=== PATIENT | male | born 1970 | race Caucasian/White ===

== ENCOUNTER 2016-10-30 12:31 | Inpatient (IN) | payer OTHER ==
[~2016-10-30] VITALS: Ht 165.1 cm; Wt 90.0 kg
[~2016-10-30 12:31] MED LIST: HYDR-3498 PO; IBUP-1542 PO
[2016-10-30] MEDS ORDERED: CEFTRIAXONE 1 GM/50 ML (PMX) 50 ML IVPB STA (13:35)
[2016-10-30] MEDS ORDERED: SODIUM CHLORIDE 0.9% 1L BAG IV* STA (13:35)
[2016-10-30] MEDS ORDERED: AZITHROMYCIN 500MG/NS (PMX) 250 ML IV STA (13:35)
[2016-10-30 13:54] LABS: ADD SCAN DIFF NO
[2016-10-30 13:55] LABS: BASOPHILS % 0.3 % (0.0-2.0); EOSINOPHILS % 0.3 % (0.0-7.0); HEMATOCRIT 40.9 % (42.0-52.0); HEMOGLOBIN 14.3 g/dl (14.0-18.0); LYMPHOCYTES # 1.7 10^3/ul (0.8-2.9); LYMPHOCYTES % 23.4 % (15.0-51.0); MEAN CORPUSCULAR HEMOGLOBIN 30.8 pg (29.0-33.0); MEAN CORPUSCULAR VOLUME 88.1 fl (82.0-101.0); MEAN PLATELET VOLUME 9.6 fl (7.4-10.4); MONOCYTE # 0.7 10^3/ul (0.3-0.9); MONOCYTES % 9.2 % (0.0-11.0); NEUTROPHIL # 4.8 10^3/ul (1.6-7.5); NEUTROPHILS % 66.2 % (39.0-77.0); PLATELET COUNT 231 10^3/UL (140-415); RED BLOOD COUNT 4.64 10^6/ul (4.70-6.10); RED CELL DISTRIBUTION WIDTH 12.5 % (11.5-14.5); WHITE BLOOD COUNT 7.3 10^3/ul (4.8-10.8)
[2016-10-30 14:07] LABS: ADD UMIC NO; UR ASCORBIC ACID 20 mg/dL (NEGATIVE); UR BILIRUBIN (Dip) NEGATIVE (NEGATIVE); UR BLOOD (Dip) NEGATIVE (NEGATIVE); UR CLARITY CLEAR (CLEAR); UR COLOR YELLOW (YELLOW); UR GLUCOSE (Dip) NEGATIVE (NEGATIVE); UR KETONES (Dip) NEGATIVE (NEGATIVE); UR LEUKOCYTE ESTERASE (Dip) NEGATIVE Leu/ul (NEGATIVE); UR NITRITE (Dip) NEGATIVE (NEGATIVE); UR TOTAL PROTEIN (Dip) NEGATIVE (NEGATIVE); UR UROBILINOGEN (Dip) 2+ mg/dL (NEGATIVE)
[2016-10-30 14:17] LABS: ALANINE AMINOTRANSFERASE 81 IU/L (13-69); ALBUMIN 4.8 g/dl (3.3-4.9); ALBUMIN/GLOBULIN RATIO 1.33; ALKALINE PHOSPHATASE 152 IU/L (42-121); ANION GAP 14 (8-16); ASPARTATE AMINO TRANSFERASE 64 IU/L (15-46); BILIRUBIN,INDIRECT 0.7 mg/dl (0-1.1); BILIRUBIN,TOTAL 0.7 mg/dl (0.2-1.3); BLOOD UREA NITROGEN 7 mg/dl (7-20); CALCIUM 9.2 mg/dl (8.4-10.2); CARBON DIOXIDE 28 mmol/L (21-31); CHLORIDE 103 mmol/L (97-110); CREATININE 0.65 mg/dl (0.61-1.24); GLUCOSE 101 mg/dl (70-220); POTASSIUM 3.6 mmol/L (3.5-5.1); SODIUM 141 mmol/L (135-144); TOTAL PROTEIN 8.4 g/dl (6.1-8.1)
[2016-10-30 14:29] LABS: TROPONIN-I < 0.012 ng/ml (0.00-0.12)
--- NOTE | 2016-10-30 14:42 | RADRPT ---
PROCEDURE: XR Chest AP portable CLINICAL INDICATION: Short of breath TECHNIQUE: An AP portable radiograph of the chest was submitted. COMPARISON: None. FINDINGS: Support Hardware: None Cardiovascular: The cardiovascular silhouette appears unremarkable. Lung Bridges: The lung bridges appear clear with no nodule, alveolar infiltrate, or interstitial promi nence evident. Pleural Spaces: No pneumothorax or pleural effusion is identified. Osseous Structures: The osseous structures appear intact. Soft Tissues: The soft tissues appear generous. IMPRESSION: Unremarkable portable chest. Physician Tasha Date Time Electronically viewed and signed by True Smith Physician on 10/30/2016 14:42 RH/
[2016-10-30 15:10] LABS: INR 0.95; PROTIME 12.7 Sec (12.2-14.2)
[2016-10-30 15:12] LABS: PARTIAL THROMBOPLASTIN TIME 35.9 Sec (25.0-35.0)
[2016-10-30] MEDS ORDERED: PEN500 PO (15:29)
[2016-10-30] MEDS ORDERED: ACETAMINOPHEN 325 MG TAB PO PRN (16:00)
[2016-10-30] MEDS ORDERED: ONDANSETRON 4 MG INJ IV PRN ×2 (16:00→20:00)
--- NOTE | 2016-10-30 16:21 | ERA ---
ER Documentation Chief Complaint Date/Time DATE: 10/30/16 TIME: 16:19 Chief Complaint cough/congestion x 1 week; dx with pna cont to have sob HPI Patient is a 46-year-old male with no medical problems who presents with fever and cough. He has palpitations and high blood pressure as well. His symptoms started on Tuesday and his primary doctor diagnosed him with a pneumonia and he was started on antibiotics and Ventolin. He has been taking antibiotics for the past 2 days but not getting better and actually feels worse. Upon review of old medical records the patient one previous visit to the ER in 2014. ROS All systems reviewed and are negative except as per history of present illness. Medications Home Meds Reported Medications Penicillin V Potassium* (Penicillin V K*) 500 Mg Tab, 500 MG PO Q8 for 7 Days, TAB PER PT STARTED RX ON 10-29-16 10/30/16 Discontinued Scripts Hydrocodone Bit-Acetaminophen* ([place]*) 5-325 Mg Tab, 1 TAB PO Q6 Y for PAIN, # 20 TAB Prov:ALBINO VELÁSQUEZ PA-C 03/31/15 Ibuprofen* (Motrin*) 600 Mg Tab, 600 MG PO Q6, #20 TAB Prov:ALBINO VELÁSQUEZ PA-C 03/31/15 Allergies Allergies: Coded Allergies: No Known Allergy (Unverified , 10/30/16) PMhx/Soc Medical and Surgical Hx: pt denies Medical Hx History of Surgery: No Anesthesia Reaction: No Hx Neurological Disorder: No Hx Respiratory Disorders: No Hx Cardiac Disorders: No Hx Psychiatric Problems: No Hx Miscellaneous Medical Probl: No Hx Alcohol Use: No Hx Substance Use: No Hx Tobacco Use: No Smoking Status: Never smoker FmHx Family History: No diabetes Physical Exam Vitals Vital Signs Date Time Temp Pulse Resp B/P Pulse Ox O2 Delivery O2 Flow Rate FiO2 10/30/16 12:37 99.9 110 22 146/86 92 Physical Exam Const: Mild distress secondary to shortness of breath Head: Atraumatic Eyes: Normal Conjunctiva ENT: Normal External Ears, Nose and Mouth. Neck: Full range of motion..~ No meningismus. Resp: Decreased breath sounds bilaterally Cardio: Tachycardic rate without murmur Abd: Soft, non tender, non distended. Normal bowel sounds Skin: No petechiae or rashes Back: No midline or flank tenderness Ext: No cyanosis, or edema Neur: Awake and alert Psych: Normal Mood and Affect Result Diagram: 10/30/16 1343 10/30/16 1343 Results 24 hrs Laboratory Tests Test 10/30/16 13:43 10/30/16 13:45 White Blood Count 7.310^3/ul Red Blood Count 4.6410^6/ul Hemoglobin 14.3g/dl Hematocrit 40.9% Mean Corpuscular Volume 88.1fl Mean Corpuscular Hemoglobin 30.8pg Mean Corpuscular Hemoglobin Concent 35.0g/dl Red Cell Distribution Width 12.5% Platelet Count 34163^3/UL Mean Platelet Volume 9.6fl Neutrophils % 66.2% Lymphocytes % 23.4% Monocytes % 9.2% Eosinophils % 0.3% Basophils % 0.3% Nucleated Red Blood Cells % 0.0/100WBC Neutrophils # 4.810^3/ul Lymphocytes # 1.710^3/ul Monocytes # 0.710^3/ul Eosinophils # 0.010^3/ul Basophils # 0.010^3/ul Nucleated Red Blood Cells # 0.010^3/ul Prothrombin Time 12.7Sec Prothrombin Time Ratio 1.0 INR International Normalized Ratio 0.95 Activated Partial Thromboplast Time 35.9Sec Sodium Level 141mmol/L Potassium Level 3.6mmol/L Chloride Level 103mmol/L Carbon Dioxide Level 28mmol/L Anion Gap 14 Blood Urea Nitrogen 7mg/dl Creatinine 0.65mg/dl Glucose Level 101mg/dl Calcium Level 9.2mg/dl Total Bilirubin 0.7mg/dl Direct Bilirubin 0.00mg/dl Indirect Bilirubin 0.7mg/dl Aspartate Amino Transf (AST/SGOT) 64IU/L Alanine Aminotransferase (ALT/SGPT) 81IU/L Alkaline Phosphatase 152IU/L Troponin I < 0.012ng/ml Total Protein 8.4g/dl Albumin 4.8g/dl Globulin 3.60g/dl Albumin/Globulin Ratio 1.33 Urine Color YELLOW Urine Clarity CLEAR Urine pH 7.0 Urine Specific Bath 1.010 Urine Ketones NEGATIVEmg/dL Urine Nitrite NEGATIVEmg/dL Urine Bilirubin NEGATIVEmg/dL Urine Urobilinogen 2+mg/dL Urine Leukocyte Esterase NEGATIVELeu/ul Urine Hemoglobin NEGATIVEmg/dL Urine Glucose NEGATIVEmg/dL Urine Total Protein NEGATIVEmg/dl Lactic Acid Level 1.3mmol/L Current Medications Medications (Trade) Dose Ordered Sig/Mahendra Route PRN Reason Start Time Stop Time Status Last Admin Dose Admin Sodium Chloride 2760 ml 2,760 ml BOLUS OVER 2 HOURS STAT IV* 10/30/16 13:35 10/30/16 13:37 DC 10/30/16 13:50 Ceftriaxone Sodium 50 ml @ 100 mls/hr ONCE STAT IVPB 10/30/16 13:35 10/30/16 14:04 DC 10/30/16 13:50 Azithromycin (Zithromax 500mg/ NS (Pmx)) 250 ml @ 250 mls/hr ONCE STAT IV 10/30/16 13:35 10/30/16 14:34 DC 10/30/16 15:26 Ondansetron HCl (Zofran Inj) 4 mg BRIDGE ORDER PRN IV NAUSEA AND/OR VOMITING 10/30/16 16:00 10/31/16 15:59 Acetaminophen (Tylenol Tab) 650 mg ER BRIDGE PRN PO MILD PAIN/FEVER 10/30/16 16:00 10/31/16 15:59 Procedures/MDM Chest x-ray shows no obvious focal pneumonia per radiology. Patient is a 46-year-old male presents with fever and cough. I believe he is failed outpatient treatment for pneumonia. He does not have an obvious focal pneumonia on chest x-ray but his symptoms are consistent with pneumonia. The patient will be given ceftriaxone and Zithromax IV for a community associated pneumonia. The patient will be admitted to Dr. Kendra Gupta as he has [facility] insurance. He will be admitted to a medical surgical bed. I doubt pneumothorax or pulmonary embolism at this time. Departure Diagnosis: Primary Impression: Pneumonia Qualified Code: J18.9 - Pneumonia due to infectious organism, unspecified laterality, unspecified part of lung Additional Impression: Cough Condition: NADIRA Stanley MD Oct 30, 2016 16:21
[2016-10-30 19:55] VITALS: BP 143/91; PULSE 102; RESP 18
[2016-10-30] MEDS ORDERED: morphine 2 MG INJ IV PRN (20:00)
[2016-10-30] MEDS ORDERED: ALBUTEROL 18 GM INHALER INH PRN (20:00)
[2016-10-30] MEDS: ACETAMINOPHEN 325 MG TAB PO PRN (20:41)
[2016-10-30] MEDS: SOD CHLORIDE 0.9% 1,000 ML IV SCH (20:42)
[2016-10-30] MEDS: ENOXAPARIN 30 MG/0.3 ML SYG SC SCH (20:47)
[2016-10-30 22:30] VITALS: BP 146/95; PULSE 94; RESP 18
[2016-10-31] MEDS ORDERED: AZIT250T6 PO (01:31)
[2016-10-31] MEDS ORDERED: ACET325T40 PO (01:33)
[2016-10-31] MEDS ORDERED: ALBU18HF INHALATION (01:33)
[2016-10-31 05:09] VITALS: BP 152/93; PULSE 86; RESP 20
[2016-10-31 05:13] VITALS: Ht 165.1 cm; Wt 90.0 kg
[2016-10-31 05:38] LABS: ADD SCAN DIFF NO
[2016-10-31 05:53] LABS: BASOPHILS % 0.3 % (0.0-2.0); EOSINOPHILS # 0.1 10^3/ul (0.0-0.5); EOSINOPHILS % 2.1 % (0.0-7.0); HEMATOCRIT 39.9 % (42.0-52.0); HEMOGLOBIN 13.6 g/dl (14.0-18.0); LYMPHOCYTES # 1.6 10^3/ul (0.8-2.9); LYMPHOCYTES % 25.8 % (15.0-51.0); MEAN CORPUSCULAR HEMOGLOBIN 30.6 pg (29.0-33.0); MEAN CORPUSCULAR HGB CONC 34.1 g/dl (32.0-37.0); MEAN CORPUSCULAR VOLUME 89.7 fl (82.0-101.0); MEAN PLATELET VOLUME 9.7 fl (7.4-10.4); MONOCYTE # 0.6 10^3/ul (0.3-0.9); MONOCYTES % 9.9 % (0.0-11.0); NEUTROPHIL # 3.7 10^3/ul (1.6-7.5); NEUTROPHILS % 61.4 % (39.0-77.0); PLATELET COUNT 231 10^3/UL (140-415); RED BLOOD COUNT 4.45 10^6/ul (4.70-6.10); RED CELL DISTRIBUTION WIDTH 12.5 % (11.5-14.5); WHITE BLOOD COUNT 6.1 10^3/ul (4.8-10.8)
[2016-10-31 06:42] LABS: CALCIUM 8.5 mg/dl (8.4-10.2); CREATININE 0.62 mg/dl (0.61-1.24); POTASSIUM 3.7 mmol/L (3.5-5.1)
[2016-10-31 07:42] VITALS: BP 152/96; RESP 18
[2016-10-31] MEDS: ENOXAPARIN 30 MG/0.3 ML SYG SC SCH ×2 (09:48→20:56)
[2016-10-31] MEDS: SOD CHLORIDE 0.9% 1,000 ML IV SCH ×3 (09:53→23:27)
--- NOTE | 2016-10-31 11:30 | HP ---
Date/Time of Note Date/Time of Note DATE: 10/31/16 TIME: 11:28 Assessment/Plan VTE Prophylaxis VTE Prophylaxis Intervention: other Lines/Catheters IV Catheter Type (from Nrs): Peripheral IV Assessment/Plan Chief Complaint/Hosp Course 1) pneumonia - intravenous antibiotics - intravenous fluids - monitor clinically Problems: HPI/ROS Admit Date/Time Admit Date/Time Oct 30, 2016 at 15:38 Hx of Present Illness Patient without any significant medical problems comes in with fever x 1 week and increasing shortness of breath and pleuritic chest pain for the last 3 days. Patient was given oral antibiotics without improvement. ROS Constitutional: febrile Eyes: no complaints ENT: no complaints Respiratory: pleuritic pain Cardiovascular: chest pain Gastrointestinal: no complaints Genitourinary: no complaints Musculoskeletal: no complaints Skin: no complaints Neurologic: no complaints Endocrine: no complaints Lymphatic: no complaints Psychological: no complaints PMH/Family/Social Social History Alcohol Use: none Smoking Status: Never smoker Exam/Review of Systems Vital Signs Vitals Vital Signs Date Time Temp Pulse Resp B/P Pulse Ox O2 Delivery O2 Flow Rate FiO2 10/31/16 07:42 99.1 86 18 152/96 95 10/31/16 05:09 Nasal Cannula 2.0 Intake and Output 10/30/16 10/30/16 10/31/16 15:00 23:00 07:00 Intake Total 850 ml Output Total 550 ml Balance 300 ml Exam Constitutional: well developed Head: atraumatic, normocephalic Neck: supple Respiratory: diminished breath sounds Cardiovascular: regular rate and rhythm Gastrointestinal: non-tender, soft Extremities: normal pulses Labs Result Diagram: 10/31/16 0506 10/31/16 0505 Medications Medications Current Medications Ceftriaxone Sodium 50 ml @ 100 mls/hr Q24H IVPB ; Start 10/31/16 at 14:00 Sodium Chloride (NS) 1,000 ml @ 75 mls/hr [id number] IV Last administered on 10/31t 09:53; Admin Dose 75 MLS/HR; Start 10/30/16 at 20:00 Ondansetron HCl (Zofran Inj) 4 mg Q6H PRN IV NAUSEA AND/OR VOMITING; Start at 20:00 Morphine Sulfate (morphine) 2 mg Q4H PRN IV pain ; Start 6/24/17 at 20:00 Enoxaparin Sodium (Lovenox) 30 mg BID SC Last administered on 10/31/16 09:48; Admin Dose 30 MG; Start 10/30/16 at 21:00 Acetaminophen (Tylenol Tab) 650 mg Q6H PRN PO PAIN AND OR ELEVATED TEMP Last administered on 10/30/16 20:41; Admin Dose 650 MG; Start 10/30/16 at 20:30 ISABELLA [facility] Oct 31, 2016 11:30
[2016-10-31] MEDS: ALBUTEROL 0.083% (NEB) 2.5 MG/3 ML AMP HHN SCH ×2 (14:00→19:18)
[2016-10-31] MEDS: CEFTRIAXONE 1 GM/50 ML (PMX) 50 ML IVPB SCH (14:15)
[2016-10-31 20:00] VITALS: BP 138/95; RESP 20
[2016-11-01] MEDS: ALBUTEROL 0.083% (NEB) 2.5 MG/3 ML AMP HHN SCH ×4 (01:54→22:31)
[2016-11-01 06:28] LABS: ADD SCAN DIFF NO
[2016-11-01 06:36] LABS: BASOPHILS % 0.4 % (0.0-2.0); EOSINOPHILS # 0.1 10^3/ul (0.0-0.5); EOSINOPHILS % 1.9 % (0.0-7.0); HEMATOCRIT 39.6 % (42.0-52.0); HEMOGLOBIN 13.7 g/dl (14.0-18.0); LYMPHOCYTES # 1.8 10^3/ul (0.8-2.9); LYMPHOCYTES % 35.3 % (15.0-51.0); MEAN CORPUSCULAR HEMOGLOBIN 30.4 pg (29.0-33.0); MEAN CORPUSCULAR HGB CONC 34.6 g/dl (32.0-37.0); MEAN PLATELET VOLUME 9.6 fl (7.4-10.4); MONOCYTE # 0.4 10^3/ul (0.3-0.9); MONOCYTES % 7.5 % (0.0-11.0); NEUTROPHIL # 2.8 10^3/ul (1.6-7.5); NEUTROPHILS % 53.9 % (39.0-77.0); PLATELET COUNT 277 10^3/UL (140-415); RED CELL DISTRIBUTION WIDTH 12.4 % (11.5-14.5); WHITE BLOOD COUNT 5.2 10^3/ul (4.8-10.8)
[2016-11-01 06:58] LABS: CALCIUM 8.9 mg/dl (8.4-10.2); CREATININE 0.67 mg/dl (0.61-1.24); POTASSIUM 3.7 mmol/L (3.5-5.1)
[2016-11-01 07:26] VITALS: BP 145/85; RESP 20
[2016-11-01] MEDS: ACETAMINOPHEN 325 MG TAB PO PRN (08:51)
[2016-11-01] MEDS: ENOXAPARIN 30 MG/0.3 ML SYG SC SCH ×2 (09:12→20:29)
[2016-11-01] MEDS ORDERED: POLYETHYLENE GLYCOL 17 GM PACKET PO PRN (13:00)
[2016-11-01] MEDS: SOD CHLORIDE 0.9% 1,000 ML IV SCH (14:35)
[2016-11-01] MEDS: CEFTRIAXONE 1 GM/50 ML (PMX) 50 ML IVPB SCH (14:35)
--- NOTE | 2016-11-01 18:38 | PN ---
Date/Time of Note Date/Time of Note DATE: 11/01/16 TIME: 18:36 Assessment/Plan VTE Prophylaxis VTE Prophylaxis Intervention: SCD's Lines/Catheters IV Catheter Type (from Nrs): Peripheral IV Assessment/Plan Assessment/Plan -Pneumonia, [place] outpatient management, continue Rocephin. -Constipation start patient on bowel regimen. Further recommendations based on clinical course. Plan of care discussed with Dr. Ramirez. Exam/Review of Systems Vital Signs Vitals Vital Signs Date Time Temp Pulse Resp B/P Pulse Ox O2 Delivery O2 Flow Rate FiO2 11/01/16 13:31 96 20 97 21 11/01/16 07:26 98.1 145/85 10/31/16 20:00 Nasal Cannula 2.0 Intake and Output 10/31/16 10/31/16 11/01/16 15:00 23:00 07:00 Intake Total 390 ml 2370 ml 2040 ml Output Total 450 ml 2300 ml 1200 ml Balance -60 ml 70 ml 840 ml Exam Constitutional: alert, oriented Head: normocephalic Neck: supple Respiratory: normal air movement Cardiovascular: nl pulses Gastrointestinal: non-tender, soft Extremities: normal pulses Neurological: nl mental status Results Result Diagram: 11/01/16 0540 11/01/16 0540 Results 24 hrs Laboratory Tests Test 11/01/16 05:40 White Blood Count 5.2 Red Blood Count 4.50 L Hemoglobin 13.7 L Hematocrit 39.6 L Mean Corpuscular Volume 88.0 Mean Corpuscular Hemoglobin 30.4 Mean Corpuscular Hemoglobin Concent 34.6 Red Cell Distribution Width 12.4 Platelet Count 277 Mean Platelet Volume 9.6 Neutrophils % 53.9 Lymphocytes % 35.3 Monocytes % 7.5 Eosinophils % 1.9 Basophils % 0.4 Nucleated Red Blood Cells % 0.0 Neutrophils # 2.8 Lymphocytes # 1.8 Monocytes # 0.4 Eosinophils # 0.1 Basophils # 0.0 Nucleated Red Blood Cells # 0.0 Sodium Level 141 Potassium Level 3.7 Chloride Level 104 Carbon Dioxide Level 29 Anion Gap 12 Blood Urea Nitrogen 8 Creatinine 0.67 Glucose Level 92 Calcium Level 8.9 Medications Medications Current Medications Ceftriaxone Sodium 50 ml @ 100 mls/hr Q24H IVPB Last administered on t 14:35; Admin Dose 100 MLS/HR; Start 10/31/16 at 14:00 Sodium Chloride (NS) 1,000 ml @ 75 mls/hr [id number] IV Last administered on 11/01 14:35; Admin Dose 75 MLS/HR; Start 10/30/16 at 20:00 Ondansetron HCl (Zofran Inj) 4 mg Q6H PRN IV NAUSEA AND/OR VOMITING; Start at 20:00 Morphine Sulfate (morphine) 2 mg Q4H PRN IV pain ; Start 10/30/16 at 20:00 Enoxaparin Sodium (Lovenox) 30 mg BID SC Last administered on 11/01/16 09:12; Admin Dose 30 MG; Start 10/30/16 at 21:00 Acetaminophen (Tylenol Tab) 650 mg Q6H PRN PO PAIN AND OR ELEVATED TEMP Last administered on 11/01/16 08:51; Admin Dose 650 MG; Start 10/30/16 at 20:30 Docusate Sodium (Colace) 100 mg BID PO ; Start 11/01/16 at 21:00 Polyethylene Glycol (Miralax) 17 gm DAILY PRN PO CONSTIPATION Last administered on 11/01/16 14:36; Admin Dose 17 GM; Start 11/01/16 at 13:00 SINGH GERMAN Nov 01, 2016 18:38
[2016-11-01 20:00] VITALS: BP 158/93; RESP 20
[2016-11-01] MEDS: DOCUSATE SODIUM 100 MG CAP PO SCH (20:25)
[2016-11-02] MEDS: ALBUTEROL 0.083% (NEB) 2.5 MG/3 ML AMP HHN SCH ×3 (02:33→13:26)
[2016-11-02] MEDS: SOD CHLORIDE 0.9% 1,000 ML IV SCH (05:09)
[2016-11-02 05:32] LABS: ADD SCAN DIFF NO
[2016-11-02 05:40] LABS: BASOPHILS % 0.4 % (0.0-2.0); EOSINOPHILS # 0.1 10^3/ul (0.0-0.5); HEMATOCRIT 39.4 % (42.0-52.0); HEMOGLOBIN 13.7 g/dl (14.0-18.0); LYMPHOCYTES # 1.9 10^3/ul (0.8-2.9); LYMPHOCYTES % 36.7 % (15.0-51.0); MEAN CORPUSCULAR HEMOGLOBIN 30.5 pg (29.0-33.0); MEAN CORPUSCULAR HGB CONC 34.8 g/dl (32.0-37.0); MEAN CORPUSCULAR VOLUME 87.8 fl (82.0-101.0); MEAN PLATELET VOLUME 9.3 fl (7.4-10.4); MONOCYTE # 0.3 10^3/ul (0.3-0.9); MONOCYTES % 6.5 % (0.0-11.0); NEUTROPHIL # 2.7 10^3/ul (1.6-7.5); PLATELET COUNT 278 10^3/UL (140-415); RED BLOOD COUNT 4.49 10^6/ul (4.70-6.10); RED CELL DISTRIBUTION WIDTH 12.6 % (11.5-14.5); WHITE BLOOD COUNT 5.1 10^3/ul (4.8-10.8)
[2016-11-02 06:04] LABS: CALCIUM 8.8 mg/dl (8.4-10.2); CREATININE 0.68 mg/dl (0.61-1.24); POTASSIUM 3.7 mmol/L (3.5-5.1)
[2016-11-02 07:35] VITALS: BP 155/94; RESP 18
[2016-11-02] MEDS: DOCUSATE SODIUM 100 MG CAP PO SCH ×2 (08:51→20:54)
[2016-11-02] MEDS: ENOXAPARIN 30 MG/0.3 ML SYG SC SCH ×2 (09:14→20:53)
[2016-11-02] MEDS: CEFTRIAXONE 1 GM/50 ML (PMX) 50 ML IVPB SCH (13:35)
--- NOTE | 2016-11-02 14:08 | PN ---
Date/Time of Note Date/Time of Note DATE: 11/02/16 TIME: 14:05 Assessment/Plan VTE Prophylaxis VTE Prophylaxis Intervention: SCD's Lines/Catheters IV [facility] Peripheral IV Assessment/Plan Chief Complaint/Hosp Course Patient's continues to have mild inspiratory wheezing, and mild productive cough , denies fevers chills. Assessment/Plan -Acute bronchitis, failed outpatient management, continue Rocephin. Breathing treatments every 6 hours. -Constipation, continue bowel regimen. Further recommendations based on clinical course. Plan of care discussed with Dr. Ramirez. Problems: Exam/Review of Systems Vital Signs Vitals Vital Signs Date Time Temp Pulse Resp B/P Pulse Ox O2 Delivery O2 Flow Rate FiO2 11/02/16 13:26 94 16 96 21 11/02/16 07:35 97.8 155/94 10/31/16 20:00 Nasal Cannula 2.0 Intake and Output 11/01/16 11/01/16 11/02/16 14:59 22:59 06:59 Intake Total 550 ml 2660 ml 2470 ml Output Total 3050 ml 3150 ml Balance 550 ml -390 ml -680 ml Exam Constitutional: alert, oriented Head: normocephalic Neck: supple Respiratory: normal air movement, mild inspiratory wheezing Cardiovascular: nl pulses Gastrointestinal: non-tender, soft Extremities: normal pulses Neurological: nl mental status Results Result Diagram: 11/02/16 0520 11/02/16 0520 Results 24 hrs Laboratory Tests Test 11/02/16 05:20 White Blood Count 5.1 Red Blood Count 4.49 L Hemoglobin 13.7 L Hematocrit 39.4 L Mean Corpuscular Volume 87.8 Mean Corpuscular Hemoglobin 30.5 Mean Corpuscular Hemoglobin Concent 34.8 Red Cell Distribution Width 12.6 Platelet Count 278 Mean Platelet Volume 9.3 Neutrophils % 53.0 Lymphocytes % 36.7 Monocytes % 6.5 Eosinophils % 2.0 Basophils % 0.4 Nucleated Red Blood Cells % 0.0 Neutrophils # 2.7 Lymphocytes # 1.9 Monocytes # 0.3 Eosinophils # 0.1 Basophils # 0.0 Nucleated Red Blood Cells # 0.0 Sodium Level 142 Potassium Level 3.7 Chloride Level 104 Carbon Dioxide Level 29 Anion Gap 13 Blood Urea Nitrogen 6 L Creatinine 0.68 Glucose Level 98 Calcium Level 8.8 Medications Medications Current Medications Ceftriaxone Sodium 50 ml @ 100 mls/hr Q24H IVPB Last administered on 13:35; Admin Dose 100 MLS/HR; Start 10/31/16 at 14:00 Sodium Chloride (NS) 1,000 ml @ 75 mls/hr [id number] IV Last administered on 11/02 05:09; Admin Dose 75 MLS/HR; Start 10/30/16 at 20:00 Ondansetron HCl (Zofran Inj) 4 mg Q6H PRN IV NAUSEA AND/OR VOMITING; Start at 20:00 Morphine Sulfate (morphine) 2 mg Q4H PRN IV pain ; Start 10/30/16 at 20:00 Enoxaparin Sodium (Lovenox) 30 mg BID SC Last administered on 11/02/16 09:14; Admin Dose 30 MG; Start 10/30/16 at 21:00 Acetaminophen (Tylenol Tab) 650 mg Q6H PRN PO PAIN AND OR ELEVATED TEMP Last administered on 11/01/16 08:51; Admin Dose 650 MG; Start 10/30/16 at 20:30 Docusate Sodium (Colace) 100 mg BID PO Last administered on 11/02/16 08:51; Admin Dose 100 MG; Start 11/01/16 at 21:00 Polyethylene Glycol (Miralax) 17 gm DAILY PRN PO CONSTIPATION Last administered on 11/01/16 14:36; Admin Dose 17 GM; Start 11/01/16 at 13:00 SINGH GERMAN Nov 02, 2016 14:08
[2016-11-02 19:30] VITALS: BP 145/90; PULSE 82; RESP 20
[2016-11-02] MEDS: ALBUTEROL/IPRATROPIUM (NEB) 3 ML AMP HHN SCH (20:10)
[2016-11-02] MEDS: METHYLPREDNISOLONE 40 MG INJ IV SCH (20:53)
[2016-11-02] MEDS: ACETAMINOPHEN 325 MG TAB PO PRN (20:53)
[2016-11-03 07:56] VITALS: BP 151/94; RESP 20
[2016-11-03] MEDS: ALBUTEROL/IPRATROPIUM (NEB) 3 ML AMP HHN SCH ×3 (08:44→20:40)
[2016-11-03] MEDS: DOCUSATE SODIUM 100 MG CAP PO SCH ×2 (08:59→20:33)
[2016-11-03] MEDS: METHYLPREDNISOLONE 40 MG INJ IV SCH ×2 (08:59→20:33)
[2016-11-03] MEDS: ENOXAPARIN 30 MG/0.3 ML SYG SC SCH ×2 (09:02→20:38)
--- NOTE | 2016-11-03 13:53 | PN ---
Date/Time of Note Date/Time of Note DATE: 11/03/16 TIME: 13:52 Assessment/Plan VTE Prophylaxis VTE Prophylaxis Intervention: SCD's Lines/Catheters IV Catheter Type (from [facility]): Saline Lock Assessment/Plan Chief Complaint/Hosp Course Patient's continues to have mild inspiratory wheezing, and mild productive cough , denies fevers chills, however states that he feels better. Assessment/Plan -Acute bronchitis, failed outpatient management, continue Rocephin. Breathing treatments every 6 hours, Solu-Medrol. -Constipation, continue bowel regimen. Further recommendations based on clinical course. Plan of care discussed with Dr. Ramirez. Problems: Exam/Review of Systems Vital Signs Vitals Vital Signs Date Time Temp Pulse Resp B/P Pulse Ox O2 Delivery O2 Flow Rate FiO2 11/03/16 13:44 95 20 96 21 11/03/16 07:56 97.9 151/94 11/02/16 19:30 Room Air 10/31/16 20:00 2.0 Intake and Output 11/02/16 11/02/16 11/03/16 14:59 22:59 06:59 Intake Total 725 ml 1120 ml 1800 ml Output Total 3000 ml 2900 ml Balance 725 ml -1880 ml -1100 ml Exam Constitutional: alert, oriented Head: normocephalic Neck: supple Respiratory: normal air movement, mild inspiratory wheezing Cardiovascular: nl pulses Gastrointestinal: non-tender, soft Extremities: normal pulses Neurological: nl mental status Results Result Diagram: 11/02/1651911/02/16 0520 Medications Medications Current Medications Ceftriaxone Sodium (Rocephin) 50 ml @ 100 mls/hr Q24H IVPB Last administered on 11/02/16 13:35; Admin Dose 100 MLS/HR; Start 10/31/16 at 14:00 Ondansetron HCl (Zofran Inj) 4 mg Q6H PRN IV NAUSEA AND/OR VOMITING; Start at 20:00 Morphine Sulfate (morphine) 2 mg Q4H PRN IV pain ; Start 10/30/16 at 20:00 Enoxaparin Sodium (Lovenox) 30 mg BID SC Last administered on 11/03/16 09:02; Admin Dose 30 MG; Start 10/30/16 at 21:00 Acetaminophen (Tylenol Tab) 650 mg Q6H PRN PO PAIN AND OR ELEVATED TEMP Last administered on 11/02/16 20:53; Admin Dose 650 MG; Start 10/30/16 at 20:30 Docusate Sodium (Colace) 100 mg BID PO Last administered on 11/03/16 08:59; Admin Dose 100 MG; Start 11/01/16 at 21:00 Polyethylene Glycol (Miralax) 17 gm DAILY PRN PO CONSTIPATION Last administered on 11/01/16 14:36; Admin Dose 17 GM; Start 11/01/16 at 13:00 Methylprednisolone Sodium Succinate (Solu-Medrol) 40 mg Q12 IV Last administered on 11/03/16 08:59; Admin Dose 40 MG; Start 11/02/16 at 21:00 SINGH GERMAN Nov 03, 2016 13:53
[2016-11-03] MEDS: CEFTRIAXONE 1 GM/50 ML (PMX) 50 ML IVPB SCH (13:58)
[2016-11-03 19:20] VITALS: BP 143/89; RESP 18
[2016-11-04 07:35] VITALS: BP 141/92; RESP 78
[2016-11-04] MEDS: ALBUTEROL/IPRATROPIUM (NEB) 3 ML AMP HHN SCH ×3 (08:25→20:02)
[2016-11-04] MEDS: METHYLPREDNISOLONE 40 MG INJ IV SCH ×2 (08:59→21:01)
[2016-11-04] MEDS: DOCUSATE SODIUM 100 MG CAP PO SCH ×2 (08:59→21:01)
[2016-11-04] MEDS: ENOXAPARIN 30 MG/0.3 ML SYG SC SCH ×2 (09:10→21:07)
[2016-11-04] MEDS: CEFTRIAXONE 1 GM/50 ML (PMX) 50 ML IVPB SCH (14:44)
--- NOTE | 2016-11-04 16:14 | PN ---
Date/Time of Note Date/Time of Note DATE: 11/04/16 TIME: 16:12 Assessment/Plan VTE Prophylaxis VTE Prophylaxis Intervention: other Lines/Catheters IV Catheter Type (from Nrsg): Saline Lock Assessment/Plan Assessment/Plan -Acute bronchitis, failed outpatient management, continue Rocephin. Breathing treatments every 6 hours, Solu-Medrol. -Constipation, continue bowel regimen. Further recommendations based on clinical course. Plan of care discussed with Dr. Ramirez. Subjective 24 Hr Interval Summary ENT: no complaints Respiratory: shortness of breath Cardiovascular: no complaints Gastrointestinal: no complaints Genitourinary: no complaints Musculoskeletal: no complaints Skin: no complaints Neurologic: no complaints Exam/Review of Systems Vital Signs Vitals Vital Signs Date Time Temp Pulse Resp B/P Pulse Ox O2 Delivery O2 Flow Rate FiO2 11/04/16 14:18 92 20 92 21 11/04/16 07:35 98.5 141/92 11/02/16 19:30 Room Air 10/31/16 20:00 2.0 Intake and Output 11/03/16 11/03/16 11/04/16 15:00 23:00 07:00 Intake Total 50 ml 3147 ml 700 ml Output Total 3001 ml 4050 ml Balance 50 ml 146 ml -3350 ml Exam Constitutional: alert, oriented, well developed Respiratory: wheezing Cardiovascular: edema, nl pulses, regular rate and rhythm Gastrointestinal: non-tender, soft Musculoskeletal: nl extremities to inspection Neurological: nl mental status, nl speech Results Result Diagram: 11/02/1651911/02/16 0520 Medications Medications Current Medications Ceftriaxone Sodium (Rocephin) 50 ml @ 100 mls/hr Q24H IVPB Last administered on 11/04/16 14:44; Admin Dose 100 MLS/HR; Start 10/31/16 at 14:00 Ondansetron HCl (Zofran Inj) 4 mg Q6H PRN IV NAUSEA AND/OR VOMITING; Start at 20:00 Morphine Sulfate (morphine) 2 mg Q4H PRN IV pain ; Start 10/30/16 at 20:00 Enoxaparin Sodium (Lovenox) 30 mg BID SC Last administered on 11/04/16 09:10; Admin Dose 30 MG; Start 10/30/16 at 21:00 Acetaminophen (Tylenol Tab) 650 mg Q6H PRN PO PAIN AND OR ELEVATED TEMP Last administered on 11/02/16 20:53; Admin Dose 650 MG; Start 10/30/16 at 20:30 Docusate Sodium (Colace) 100 mg BID PO Last administered on 11/04/16 08:59; Admin Dose 100 MG; Start 11/01/16 at 21:00 Polyethylene Glycol (Miralax) 17 gm DAILY PRN PO CONSTIPATION Last administered on 11/01/16 14:36; Admin Dose 17 GM; Start 11/01/16 at 13:00 Methylprednisolone Sodium Succinate (Solu-Medrol) 40 mg Q12 IV Last administered on 11/04/16 08:59; Admin Dose 40 MG; Start 11/02/16 at 21:00 MAVERICK UNDERWOOD Nov 04, 2016 16:14
[2016-11-04 17:45] LABS: ADD UMIC NO; UR ASCORBIC ACID NEGATIVE (NEGATIVE); UR BILIRUBIN (Dip) NEGATIVE (NEGATIVE); UR BLOOD (Dip) NEGATIVE (NEGATIVE); UR CLARITY CLEAR (CLEAR); UR COLOR STRAW (YELLOW); UR GLUCOSE (Dip) NEGATIVE (NEGATIVE); UR KETONES (Dip) NEGATIVE (NEGATIVE); UR LEUKOCYTE ESTERASE (Dip) NEGATIVE Leu/ul (NEGATIVE); UR NITRITE (Dip) NEGATIVE (NEGATIVE); UR SPECIFIC GRAVITY (Dip) 1.006 (1.003-1.030); UR TOTAL PROTEIN (Dip) NEGATIVE (NEGATIVE); UR UROBILINOGEN (Dip) NEGATIVE (NEGATIVE)
[2016-11-04 17:55] LABS: GLUCOSE,URINE RANDOM < 20 mg/dl (0-29)
--- NOTE | 2016-11-04 19:09 | RADRPT ---
PROCEDURE: Renal US. CLINICAL INDICATION: Flank pain. TECHNIQUE: Multiple sonographic images of the kidneys and urinary bladder were obtained. The imag es were reviewed on a PACS workstation. COMPARISON: No prior studies are available for comparison. FINDINGS: The right kidney measures 11.5 x 5.4 x 4.9 cm. The left kidney measures 11.3 x 5.9 x 4.2 cm. There is no renal mass. There is no hydronephrosis. There is a nonobstructing 0.4 cm calculus in the lower left kidney and a nonobstructing 0.5 cm calcu saad in the mid left kidney. There is no other renal calculus. Renal parenchymal thickness is normal bilaterally. Echogenicity is normal bilaterally. The perirenal regions are normal with no fluid collection or mass. The urinary bladder is unremarkable. IMPRESSION: 1. Small nonobstructing left renal calculi. 2. No hydronephrosis. 3. Otherwise normal renal ultrasound. RPTAT: QQ .Rayshawn Aguilar MD, MD Date Time Electronically viewed and signed by .Rayshawn Aguilar MD, MD on 11/04/2016 19:09 .R/
[2016-11-04 20:00] VITALS: BP 150/89; PULSE 93; RESP 18
[2016-11-05 06:17] LABS: BASOPHILS % 0.1 % (0.0-2.0); HEMATOCRIT 45.2 % (42.0-52.0); HEMOGLOBIN 15.1 g/dl (14.0-18.0); LYMPHOCYTES # 1.6 10^3/ul (0.8-2.9); LYMPHOCYTES % 18.1 % (15.0-51.0); MEAN CORPUSCULAR HEMOGLOBIN 30.2 pg (29.0-33.0); MEAN CORPUSCULAR HGB CONC 33.4 g/dl (32.0-37.0); MEAN CORPUSCULAR VOLUME 90.4 fl (82.0-101.0); MEAN PLATELET VOLUME 9.7 fl (7.4-10.4); MONOCYTE # 0.2 10^3/ul (0.3-0.9); MONOCYTES % 2.2 % (0.0-11.0); NEUTROPHIL # 7.1 10^3/ul (1.6-7.5); NEUTROPHILS % 78.4 % (39.0-77.0); PLATELET COUNT 379 10^3/UL (140-415)
[2016-11-05 06:56] LABS: CREATININE 0.67 mg/dl (0.61-1.24)
[2016-11-05 07:14] LABS: ADD SCAN DIFF NO
[2016-11-05] MEDS: ALBUTEROL/IPRATROPIUM (NEB) 3 ML AMP HHN SCH ×2 (07:39→14:05)
[2016-11-05 08:01] VITALS: BP 139/86; RESP 16
[2016-11-05] MEDS: METHYLPREDNISOLONE 40 MG INJ IV SCH (08:46)
[2016-11-05] MEDS: DOCUSATE SODIUM 100 MG CAP PO SCH (08:46)
[2016-11-05] MEDS: ENOXAPARIN 30 MG/0.3 ML SYG SC SCH (09:06)
[2016-11-05] MEDS: CEFTRIAXONE 1 GM/50 ML (PMX) 50 ML IVPB SCH (13:51)
[2016-11-05] MEDS ORDERED: LEVO500T72 PO (14:03)
[2016-11-05] MEDS ORDERED: MED4DP PO (14:03)
--- NOTE | 2016-11-05 19:37 | DS ---
Date/Time of Note Date/Time of Note DATE: 11/05/16 TIME: 19:34 Discharge Summary Admission/Discharge Info Admit Date/Time Oct 30, 2016 at 15:38 Discharge Date/Time Nov 05, 2016 at 17:35 Discharge Diagnosis -Acute bronchitis, failed outpatient management Patient Condition: Good Hx of Present Illness Patient without any significant medical problems comes in with fever x 1 week and increasing shortness of breath and pleuritic chest pain for the last 3 days. Patient was given oral antibiotics without improvement. Hospital Course -Acute bronchitis, failed outpatient management, given Rocephin, breathing treatments every 6 hours, Solu-Medrol. -Constipation, continue bowel regimen. Home Meds Active Scripts Methylprednisolone* (Medrol* DOSE PACK) 4 Mg/Dose-Pack Tab.ds.pk, 4 MG PO . DIRECTED, #1 PACKET Prov:SINGH GERMAN 11/05/16 Levofloxacin* (Levaquin*) 500 Mg Tablet, 500 MG PO DAILY for 5 Days, TAB Prov:SINGH GERMAN 11/05/16 Reported Medications Acetaminophen (MAPAP) 325 Mg Tablet, 325 MG PO Q4 for PAIN, TAB 10/31/16 Albuterol Sulfate* (Ventolin HFA*) 18 Gm Hfa.aer.ad, 2 PUFF INHALATION Q6H Y for SHORTNESS OF BREATH, #1 INHALER 10/31/16 Discontinued Reported Medications Azithromycin* (Azithromycin*) 250 Mg Tablet, 250 MG PO DAILY for 4 Days, #4 TAB 10/31/16 Penicillin V Potassium* (Penicillin V K*) 500 Mg Tab, 500 MG PO Q8 for 7 Days, TAB PER PT STARTED RX ON 10-29-16 10/30/16 Discontinued Scripts Hydrocodone Bit-Acetaminophen* ([place]*) 5-325 Mg Tab, 1 TAB PO Q6 Y for PAIN, # 20 TAB Prov:ALBINO VELÁSQUEZ PA-C 03/31/15 Ibuprofen* (Motrin*) 600 Mg Tab, 600 MG PO Q6, #20 TAB Prov:ALBINO VELÁSQUEZ PA-C 03/31/15 Primary Care Provider Nawaf Franco Pending Labs Laboratory Tests Test 11/05/16 05:21 White Blood Count 9.010^3/ul (4.8-10.8) Red Blood Count 5.0010^6/ul (4.70-6.10) Hemoglobin 15.1g/dl (14.0-18.0) Hematocrit 45.2% (42.0-52.0) Mean Corpuscular Volume 90.4fl (82.0-101.0) Mean Corpuscular Hemoglobin 30.2pg (29.0-33.0) Mean Corpuscular Hemoglobin Concent 33.4g/dl (32.0-37.0) Red Cell Distribution Width 13.0% (11.5-14.5) Platelet Count 37993^3/UL (140-415) Mean Platelet Volume 9.7fl (7.4-10.4) Neutrophils % 78.4% (39.0-77.0) Lymphocytes % 18.1% (15.0-51.0) Monocytes % 2.2% (0.0-11.0) Eosinophils % 0.0% (0.0-7.0) Basophils % 0.1% (0.0-2.0) Nucleated Red Blood Cells % 0.0/100WBC (0.0-0.0) Neutrophils # 7.110^3/ul (1.6-7.5) Lymphocytes # 1.610^3/ul (0.8-2.9) Monocytes # 0.210^3/ul (0.3-0.9) Eosinophils # 0.010^3/ul (0.0-0.5) Basophils # 0.010^3/ul (0.0-0.1) Nucleated Red Blood Cells # 0.010^3/ul (0.0-0.0) Sodium Level 144mmol/L (135-144) Potassium Level 5.0mmol/L (3.5-5.1) Chloride Level 98mmol/L (97-110) Carbon Dioxide Level 29mmol/L (21-31) Anion Gap 22 (8-16) Blood Urea Nitrogen 13mg/dl (7-20) Creatinine 0.67mg/dl (0.61-1.24) Glucose Level 113mg/dl (70-220) Hemoglobin A1c 5.6% (0-5.9) Calcium Level 10.0mg/dl (8.4-10.2) SINGH GERMAN Nov 05, 2016 19:37
== END 2016-11-05 17:35 | disposition home or self-care (01) | DRG 203 ==
LOC: E/R 12:31 → MS2 15:38
PROVIDERS: ADMIT Internal Medicine; ATTEND Internal Medicine
DX: J20.9 Acute bronchitis, unspecified (principal); K59.00 Constipation, unspecified
CPT/HCPCS: 36415; 71010; 76775; 80048; 80053; 81003; 82945; 83036; 83605; 83935; 84300; 84484; 85025; 85610; 85730; 87040; 87086; 93005; 94640; 94664; 96374; 96375; J0456; J0696; J1650; J2920; J7030